=== PATIENT | female | born 1945 | race Caucasian/White ===

== ENCOUNTER 2021-10-28 10:20 | Day surgery (SDC) | payer MEDICARE ==
--- NOTE | 2021-10-28 09:22 | HP ---
DATE OF SURGERY: 10/28/2021 HISTORY OF PRESENT ILLNESS: The patient is a 75-year-old who has a ventral hernia incarcerated. She had some sort of upper abdominal tie up surgery. She was adopted so she is not clear on the details. PAST MEDICAL HISTORY: Hypertension, diabetes, hernia. PAST SURGICAL HISTORY: Tubal in the past. Ear surgery as a child. D&C. She had some sort of upper abdominal surgery when she was a child whether that was hernia or other etiology is unclear. She thinks it might have been a hernia repair as a child in epigastrium and this is a second area. CT scan showed incarcerated fatty ventral hernia. MEDICATIONS: Aleve, alprazolam, aspirin, calcium 500 with vitamin D, calcium carbonate, cyclobenzaprine, fexofenadine, metoprolol, ibuprofen, irbesartan, pantoprazole, tramadol. ALLERGIES: TB TEST. FAMILY HISTORY: Kidney disease, heart disease, cancer, diabetes, thyroid disease. SOCIAL HISTORY: No smoking. Alcohol use only once or twice a year denies abuse. REVIEW OF SYSTEMS: Fourteen systems reviewed. No chest pain or palpitations. Other systems negative or noncontributory as above and per preadmission questionnaire. PHYSICAL EXAMINATION: GENERAL: No acute distress. HEENT: Sclerae nonicteric. Oral mucous membranes moist. NECK: No JVD. CHEST: Equal excursion, nonlabored breathing. CVS: Regular rate and rhythm. ABDOMEN: Soft. No peritoneal signs. Incarcerated mid abdomen ventral hernia likely with some prepertioneal fat omentum. EXTREMITIES: No significant edema. NEURO: Alert, oriented, moving extremities symmetrically. SKIN: Dry. PSYCH: Appropriate mood and affect. IMPRESSION: Incarcerated ventral hernia. I feel the patient would benefit from repair. Discussed option of laparoscopic given her prior history of surgery, I feel she would benefit from laparoscopic assisted incarcerated ventral hernia repair with mesh possible open. Risks and benefits explained in detail but not limited to bleeding or infection, risk of trocar injury or hernia, risk of bowel, bladder, blood vessel injury, risk of adhesion, scar formation or obstruction. Perioperative risk of aches, pains, bloating or ileus. Risk of chronic aches and pain. Risk of hernia recurrence, risk of ingrown hair or suture reaction, risk of mesh infection possibly requiring removal, remote risk of mesh fracture or failure possibly creating issue with the viscera or other structures possibly requiring other procedures or morbidity. 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 Risk of hernia recurrence. General risk of anesthesia, deep venous thrombosis, pulmonary embolism, pneumonia but not limited to, consent obtained. Will proceed with laparoscopic assisted incarcerated ventral hernia repair with mesh possible open.
[~2021-10-28 10:20] MED LIST: Lactated Ringers 1,000 ML IV ONE; Sensorcaine 0.25% 10 ML ONE
[2021-10-28] MEDS ORDERED: EXPAREL 133 MG/10 ML VIAL IJ ONE (10:21)
[2021-10-28] MEDS ORDERED: DEXMEDETOMIDINE 80 MCG/20ML-NS IV ONE (10:21)
[2021-10-28] MEDS ORDERED: Lactated Ringers 1,000 ML IV SCH (11:00)
[2021-10-28] MEDS ORDERED: CEFAZOLIN 2 GM-D5W BAG** 2 GM/50 ML ML IV SCH (11:00)
[2021-10-28] MEDS ORDERED: DIPRIVAN 200 MG/20 ML IV ONE (12:19)
[2021-10-28] MEDS ORDERED: Quelicin Fliptop 200 MG/10 ML ONE (12:19)
[2021-10-28] MEDS ORDERED: Zemuron 100 MG/10 ML ONE (12:19)
[2021-10-28] MEDS ORDERED: Marcaine 0.5%/Epinephrine 10 ML ONE (12:19)
[2021-10-28] MEDS ORDERED: Zofran 4 MG/2 ML VIAL ONE (12:19)
[2021-10-28] MEDS ORDERED: Xylocaine-Mpf 2% 5 Ml Vial ONE (12:19)
[2021-10-28] MEDS ORDERED: Decadron 4 MG INJ ONE (12:19)
[2021-10-28] MEDS ORDERED: Versed 2 MG/2 ML Injection ONE (12:20)
[2021-10-28] MEDS ORDERED: SUBLIMAZE 100 MCG/2 ML ONE (12:20)
[2021-10-28] MEDS ORDERED: Pre-Attached Lta Kit TP ONE (12:28)
[2021-10-28] MEDS ORDERED: OFIRMEV 100 ML IV ONE (12:28)
[2021-10-28] MEDS ORDERED: Lactated Ringers 1,000 ML IV ONE (12:44)
[2021-10-28] MEDS ORDERED: ATROPINE SULFATE 1MG ONE (12:48)
[2021-10-28] MEDS ORDERED: Ephedrine Sulfate 50 MG/ML ONE (13:00)
[2021-10-28] MEDS ORDERED: APRESOLINE 20 MG/ML INJ ONE (13:27)
[2021-10-28] MEDS ORDERED: BLOXIVERZ IV ONE (13:52)
[2021-10-28] MEDS ORDERED: ROBINUL ONE ×2 (13:52→13:54)
--- NOTE | 2021-10-28 15:30 | OP ---
SURGERY DATE/TIME: 10/28/2021 1240 PREOPERATIVE DIAGNOSIS: Incarcerated ventral hernia. POSTOPERATIVE DIAGNOSIS: Incarcerated ventral hernia. PROCEDURE: Laparoscopic-assisted repair of incarcerated ventral hernia with mesh. SURGEON: Dr. Rick Moreno. MODERN LANGUAGES PROFESSOR: Monika Richard, Medical Student III. ANESTHESIA: General. ESTIMATED BLOOD LOSS: Minimal. INDICATIONS: As noted above. Risks and benefits explained in detail and not limited to and consent obtained. DESCRIPTION OF PROCEDURE AND FINDINGS: The patient is taken to the operating room. General anesthesia induced. Abdomen prepped and draped in usual sterile fashion. After official time out and no disagreement with planned procedure, a transverse incision made in the left upper quadrant. Fascia grasped and pulled upwards. Veress needle inserted and tested with saline. Pneumoperitoneum accomplished opening pressure 0 to 15. A 5 mm bladeless port and camera inserted without difficulty carefully, 5 mm left mid abdomen and 5 mm left upper quadrant port placed. A 5 mm mid abdomen port is placed. Under direct vision of the camera, no evidence of any intra-abdominal injury secondary to trocar or Veress needle placement. Fortunately, the patient has a big upper abdomen transverse laparoscopy incision and did not seem to have seem to have any significant adhesions. Fortunately allowed us to continue. She did have incarcerated preperitoneal fat in this hernia and mid abdomen. There was a little bit of a [place] cheese defect this was carefully freed incarcerated fat carefully reduced back down in the abdomen. The preperitoneal plane circumferentially around it was cleared for access for repair at this point. It was felt a size [address] mesh the most appropriate size. It was elected to go ahead and make a small transverse incision in the lower epigastrium this was allowed to be placed with transfacial sutures interrupted fashion to allow for closure of the two fascial defects back towards the midline. Once this was accomplished, the mesh size was marked on the skin. Port is placed through the defect and the mesh carefully after 0 Ethibond placed in four quadrants in a 0 Vicryl suture. The mesh was wet, carefully rolled and placed in the abdomen without difficulty. The transfascial #1 Vicryl sutures were then carefully pulled up and transfixed. The mesh was then centered with Vicryl centering the mesh up to through the center portion of the defect with the four quadrant 0 Ethibond pulled up and tied transfascially four quadrant through the stab wound. Once this was accomplished, the Capture Tacker tacked about a centimeter apart around the periphery. A couple additional ones placed centrally with the mesh nice and flat in a tension-free manner. The preperitoneal space allowed to fall back up against it. There is no evidence of any visceral issues or injury. Good hemostasis noted. Pneumoperitoneum decompressed. The ports removed. At this point, 3-0 Vicryl used to transfix the subcu tacking it back down towards the level of the fascia reducing the space. Skin closed with 4-0 Vicryl interrupted fashion. Steri-Strips and sterile dressing applied. The patient tolerated the procedure well. There were no immediate complications. 0.25% Marcaine local had been injected along the skin incision. Anesthesia applied tap blocks after that. The patient tolerated the procedure well. There were no immediate complications. Findings discussed with the family out in the waiting area.
[2021-10-28 15:41] LABS: Appearance CLEAR (CLEAR); Bilirubin NEGATIVE (NEGATIVE); Blood NEGATIVE Ery/ul (0-5); Glucose NEGATIVE (NEGATIVE); Ketones NEGATIVE (NEGATIVE); Leukocyte Esterase NEGATIVE (NEGATIVE); Nitrite NEGATIVE (NEGATIVE); Ph 6.5 (5-6); Protein,Urine Dip NEGATIVE (Negative); Urobilinogen 0.2 mg/dL (0-1)
[2021-10-28 16:17] VITALS: O2SAT 96
[2021-10-28 16:29] VITALS: BP 138/72; PULSE 78
== END 2021-10-28 16:20 | disposition home or self-care (01) ==
LOC: SDC 10:20
PROVIDERS: ATTEND Surgery
DX: K43.6 Other and unspecified ventral hernia with obstruction, without gangrene (principal); E11.9 Type 2 diabetes mellitus without complications; I10 Essential (primary) hypertension; Z80.9 Family history of malignant neoplasm, unspecified; Z79.899 Other long term (current) drug therapy
CPT/HCPCS: 64488; 76942; 81001; 82947; 87086; 93005; 99100; J0330; J0360; J0461; J0690; J1100; J2250; J2405; J2704; J2710; J3010; L0625